=== PATIENT | female | born 1980 | race Caucasian/White ===

== ENCOUNTER 2017-07-07 13:11 | Emergency (ER) | payer OTHER ==
[~2017-07-07] VITALS: Ht 175.3 cm; Wt 76.0 kg
[2017-07-07 13:23] VITALS: BP 120/74; PULSE 94; RESP 18; TEMP 97.9; O2SAT 99
[2017-07-07] MEDS ORDERED: XANA2TAB2 PO (13:38)
--- NOTE | 2017-07-07 13:47 | PD ---
HPI Chief Complaint: Complaint Time Seen by Provider: 13:38 Travel History International Travel<30 days: Yes Contact w/Intl Traveler<30days: [place] Traveled to: [facility] Traveled to known affect area: No History of Present Illness HPI This is a 36-year-old female who presents to the emergency department with several days of lower abdominal discomfort described as cramping, intermittent, moderate severity associated with some vaginal bleeding and dysuria. She denies any fevers or chills. She's vomited twice. She did take the morning after pill several days ago. She is not due for her menstrual cycle right now but is having bleeding and was concerned. PFSH Past Medical History Anxiety: Yes Tetanus Vaccination: < 5 Years Influenza Vaccination: Yes ?: Unknown LMP: 20 days ago Past Surgical History Other Surgery: Yes (Breast aug.) Social History Alcohol Use: Yes (Occ.) Tobacco Use: No Substance Use: No Allergies-Medications (Allergen,Severity, Reaction): Coded Allergies: No Known Allergies (Unverified , 07/07/17) Reported Meds & Prescriptions Reported Meds & Active Scripts Active Reported Xanax (Alprazolam) 2 Mg Tab 2 Mg PO Q8H PRN Review of Systems Except as stated in HPI: all other systems reviewed are Neg Physical Exam Narrative GENERAL:Well appearing, no acute distress SKIN: Focused skin assessment warm and dry. HEAD: Atraumatic. Normocephalic. EYES: Pupils equal and round. No injection or drainage. ENT: Moist mucous membranes NECK: Trachea midline. CARDIOVASCULAR: Regular rate and rhythm. No murmur appreciated. RESPIRATORY: Clear to auscultation. Breath sounds equal bilaterally. GASTROINTESTINAL: Abdomen soft, mildly tender to palpation in the suprapubic region without rebound or guarding. [employer]: dark stream of blood from the os, no purulent discharge in the vault, no cervical motion tenderness or adnexal tenderness MUSCULOSKELETAL: No obvious deformities. NEUROLOGICAL: Awake and alert. No obvious cranial nerve deficits. Moving all extremities. PSYCHIATRIC: Tearful, somewhat anxious appearing. Data Data Last Documented VS Vital Signs Date Time Temp Pulse Resp B/P (MAP) Pulse Ox O2 Delivery O2 Flow Rate FiO2 07/07/17 13:23 97.9 94 18 120/74 (89) 99 Orders Orders Urinalysis - C+S If Indicated (07/07/17 13:43) Ed Urine Pregnancytest Poc (07/07/17 13:43) Ketorolac Inj (Toradol Inj) (07/07/17 14:30) Labs Laboratory Tests Test 07/07/17 13:20 Urine Collection Type CLEAN CATCH Urine Color YELLOW Urine Turbidity SLIGHTY CLOUDY Urine pH 6.0 Urine Specific [place] 1.019 Urine Protein NEG mg/dL Urine Glucose (UA) NEG mg/dL Urine Ketones NEG mg/dL Urine Occult Blood LARGE Urine Nitrite NEG Urine Bilirubin NEG Urine Leukocyte Esterase TRACE Urine RBC 0-3 /hpf Urine WBC 3-5 /hpf Urine Squamous Epithelial Cells 0-5 /hpf Microscopic Urinalysis Comment CULT NOT INDICATED MDM Medical Decision Making Medical Screen Exam Complete: Yes Emergency Medical Condition: Yes Interpretation(s) Afebrile, mild tachycardia, normotensive Urinalysis: Trace leukocyte esterase [id number] is negative Differential Diagnosis Urinary tract infection, pelvic inflammatory disease, ectopic , cramping after morning after pill Narrative Course This is a 36-year-old female who presents to the emergency department with dysuria, vaginal bleeding and lower abdominal cramping. She just took morning after pill several days ago. I suspect her cramping and bleeding is secondary to the morning-after pill. Urinalysis demonstrates trace leukocyte esterase. The patient's affect is fairly bizarre. She was tearful her whole time here in the ER and seemed very anxious. I couldn't get what her chief concern was. She kept saying she was having a lot of burning with urination. Given this I think it's reasonable to treat her empirically for urinary tract infection although her urinalysis doesn't demonstrate much. Patient will be discharged on Bactrim and an anti-inflammatory. She is given IM Toradol here in the emergency Department. I don't see any reason to do further blood work or CT imaging. Her exam is fairly benign and she is afebrile. I told her to return to the emergency department if she develops new or worsening symptoms at which time we would consider CT imaging. Diagnosis Primary Impression: Pelvic cramping Patient Instructions: General Instructions Additional Instructions: If you develop severe or worsening abdominal pain, fever>100.4, persistent vomiting or inability to eat or drink return to the emergency department immediately. Follow up with your primary care physician in 1-2 days for a check-up. Med/Other Pt SpecificInfo: Prescription(s) given Scripts Naproxen (Naproxen) 500 Mg Tab 500 MG PO BID Y for PAIN SCALE 4 TO 10, #20 TAB 0 Refills Prov: Cortney Castellon MD 07/07/17 Sulfamethoxazole-Trimethoprim (Bactrim DS) 800-160 Mg Tab 1 TAB PO BID for Infection, #6 TAB 0 Refills Prov: Cortney Castellon MD 07/07/17 Disposition: 01 DISCHARGE HOME Condition: Stable Cortney Castellon MD Jul 07, 2017 13:47
[2017-07-07 13:54] LABS: BLOOD, URINE LARGE (NEG); GLUCOSE,URINE NEG (NEG); KETONE, URINE NEG (NEG); NITRITE,URINE NEG (NEG)
[2017-07-07 13:59] LABS: METHOD OF COLLECTION CLEAN CATCH; RBC, URINE 0-3 /hpf (0-3); SQUAMOUS EPITHELIAL CELL URINE 0-5 /hpf (0-5); URINE COLOR YELLOW (YELLW/STRAW)
[2017-07-07 14:00] LABS: COMMENT (UR) CULT NOT INDICATED; COMMENT2 (UR) MUCOUS PRESENT; CULTURE IF INDICATED CULT NOT INDICATED
[2017-07-07] MEDS ORDERED: NAPR500T PO (14:27)
[2017-07-07] MEDS ORDERED: BACT800T5 PO (14:27)
[2017-07-07] MEDS ORDERED: KETOROLAC TROMETHAMINE 60 MG/2 ML (IM) VIAL IM ONE (14:30)
[2017-07-07 14:40] VITALS: BP 105/68; PULSE 72; RESP 18; O2SAT 99
[2017-07-07] MEDS ORDERED: hydrOXYzine HCL 25 MG TAB PO ONE (14:45)
[2017-07-07 18:02] LABS: CHLAMYDIA PCR NOT DETECTED (NOT DETECT); NEISSERIA PCR NOT DETECTED (NOT DETECT)
== END 2017-07-07 14:44 | disposition home or self-care (01) ==
LOC: PHED 13:11
DX: R10.2 Pelvic and perineal pain (principal)
CPT/HCPCS: 81001; 84703; 87210; 87491; 87591; 96372; 99284; J1885

== ENCOUNTER 2018-02-15 16:37 | Emergency (ER) | payer OTHER ==
[~2018-02-15] VITALS: Ht 175.3 cm; Wt 85.4 kg
[~2018-02-15 16:37] MED LIST: BACT800T5 PO; NAPR500T2 PO; XANA2TAB2 PO
[2018-02-15 16:42] VITALS: BP 132/94; PULSE 110; RESP 20; TEMP 97.8; O2SAT 100
[2018-02-15] MEDS ORDERED: NORC5TAB PO (16:49)
[2018-02-15] MEDS ORDERED: ORPHENADRINE INJ 60 MG/2 ML AMP IM ONE (17:30)
[2018-02-15] MEDS ORDERED: KETOROLAC TROMETHAMINE 60 MG/2 ML (IM) VIAL IM ONE (17:30)
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
[2018-02-15] MEDS ORDERED: ROBA500T PO (17:59)
[2018-02-15] MEDS ORDERED: IBUP1TAB7 PO (17:59)
[2018-02-15] MEDS ORDERED: MEDR4PAK PO (18:00)
== END 2018-02-15 18:28 | disposition home or self-care (01) ==
LOC: PHEFT 16:37
DX: M43.6 Torticollis (principal); F41.9 Anxiety disorder, unspecified
CPT/HCPCS: 96372; 99283; J1885; J2360